=== PATIENT | female | born 1985 | race Caucasian/White ===

== ENCOUNTER 2016-08-28 18:02 | Outpatient (CLI) | payer OTHER ==
[~2016-08-28] VITALS: Ht 160 cm; Wt 80.0 kg
[2016-08-28 18:28] VITALS: BP 107/56
[2016-08-28] MEDS ORDERED: PREN1TAB60 PO (19:58)
== END 2016-08-28 20:25 | disposition home or self-care (01) ==
LOC: LDOP 18:02
PROVIDERS: ATTEND Obstetrics & Gynecology Maternal & Fetal Medicine
DX: O71.89 Other specified obstetric trauma (principal); O26.892 Other specified pregnancy related conditions, second trimester; R10.9 Unspecified abdominal pain; Z3A.00 Weeks of gestation of pregnancy not specified
CPT/HCPCS: 36415; 59025; 76815; 85460; 86850; 86900; 99211; G0463

== ENCOUNTER 2016-12-24 13:05 | Inpatient (IN) | payer OTHER ==
[~2016-12-24] VITALS: Ht 160 cm; Wt 95.0 kg
[~2016-12-24 13:05] MED LIST: PREN1TAB60 PO
[2016-12-26] MEDS ORDERED: OXYTOCIN 30U/ 0.9% NaCL 500ML 500 ML IV ONE (14:55)
[2016-12-26] MEDS ORDERED: PLEASE ENTER HEIGHT AND WEIGHT MC SCH (15:00)
[2016-12-26] MEDS ORDERED: MISOPROSTOL 25 MCG TABLET ONE ×2 (15:39→23:53)
[2016-12-26 15:44] LABS: ANISOCYTOSIS 1+; POLYCHROMASIA 1+
[2016-12-26 15:45] LABS: LARGE PLATELETS 1+
[2016-12-26] MEDS: MISOPROSTOL 25 MCG TABLET VG PRN (16:05)
[2016-12-26] MEDS: LACTATED RINGERS 1,000 ML IV SCH (16:15)
[2016-12-26] MEDS: D5%-LACTATED RINGERS 1,000 ML IV SCH (22:55)
[2016-12-27] MEDS: MISOPROSTOL 25 MCG TABLET VG PRN (00:02)
[2016-12-27] MEDS ORDERED: NEWBORN KIT ONE (00:36)
[2016-12-27] MEDS ORDERED: OXYTOCIN 30U/ 0.9% NaCL 500ML 500 ML ONE (00:36)
[2016-12-27] MEDS ORDERED: MISOPROSTOL 25 MCG TABLET ONE (05:59)
[2016-12-27] MEDS: D5%-LACTATED RINGERS 1,000 ML IV SCH ×3 (06:55→22:55)
[2016-12-27] MEDS: LACTATED RINGERS 1,000 ML IV SCH (22:30)
[2016-12-28] MEDS: FENTANYL PF 100 MCG/2ML IVPush PRN ×3 (05:30→07:50)
[2016-12-28] MEDS ORDERED: FENTANYL PF 100 MCG/2ML ONE ×5 (05:30→17:59)
[2016-12-28] MEDS ORDERED: OXYTOCIN 30U/ 0.9% NaCL 500ML 500 ML IV PRN (05:40)
[2016-12-28] MEDS ORDERED: OXYTOCIN 30U/ 0.9% NaCL 500ML 500 ML IV ONE (05:40)
[2016-12-28] MEDS: LACTATED RINGERS 1,000 ML IV SCH ×16 (05:40→22:55)
[2016-12-28] MEDS: D5%-LACTATED RINGERS 1,000 ML IV SCH ×7 (05:40→22:55)
[2016-12-28] MEDS ORDERED: LIDOCAINE 1%, 20ML ONE (05:49)
[2016-12-28] MEDS ORDERED: MISOPROSTOL 200 MCG TABLET ONE (05:49)
[2016-12-28] MEDS ORDERED: CALCIUM CARBONATE 500 MG TAB.CHEW PO PRN (06:00)
[2016-12-28] MEDS ORDERED: ONDANSETRON 2MG/ML, 2ML IVPush PRN ×2 (06:00→18:00)
[2016-12-28] MEDS ORDERED: SODIUM CITRATE/CITRIC ACID 30 ML UDC PO PRN (06:00)
[2016-12-28] MEDS ORDERED: SODIUM CHLORIDE FLUSH 10ML SYR IVF PRN ×2 (06:00→22:00)
[2016-12-28] MEDS ORDERED: FENTANYL/BUPIV./NS/PF 250 ML EPIDCONT SCH ×2 (08:38→08:41)
[2016-12-28] MEDS ORDERED: FENTANYL/BUPIV./NS/PF 250 ML EPIDCONT ONE (09:00)
[2016-12-28] MEDS ORDERED: LACTATED RINGERS 1,000 ML IVBOLUS PRN (09:00)
[2016-12-28] MEDS ORDERED: EPHEDRINE 50 MG/ML, 1ML IVPush PRN ×2 (09:00→18:00)
[2016-12-28] MEDS ORDERED: NALOXONE 0.4 MG/ML, 1ML IVPush PRN (09:00)
[2016-12-28] MEDS ORDERED: BUPIVACAINE/PF 0.25% ONE (09:00)
[2016-12-28] MEDS: LACTATED RINGERS 1,000 ML IVBOLUS PRN ×2 (10:12→18:09)
[2016-12-28] MEDS ORDERED: ACETAMINOPHEN 325 MG TABLET PO PRN ×4 (14:30→22:00)
[2016-12-28] MEDS ORDERED: ACETAMINOPHEN 325 MG TABLET ONE ×2 (14:33→19:13)
[2016-12-28] MEDS ORDERED: METHYLERGONOVINE 0.2 MG/ML IM ONE (16:36)
[2016-12-28] MEDS ORDERED: SODIUM CITRATE/CITRIC ACID 30 ML UDC ONE (17:48)
[2016-12-28] MEDS ORDERED: METOCLOPRAMIDE 5 MG/ML, 2ML ONE ×2 (17:49→18:20)
[2016-12-28] MEDS ORDERED: ALBUTEROL SULFATE 2.5 MG/3 ML NPPB PRN (18:00)
[2016-12-28] MEDS ORDERED: PROMETHAZINE 25 MG/ML, 1ML IV PRN (18:00)
[2016-12-28] MEDS ORDERED: LABETALOL 5MG/ML, 20ML IV PRN (18:00)
[2016-12-28] MEDS ORDERED: FENTANYL PF 100 MCG/2ML IV PRN (18:00)
[2016-12-28] MEDS ORDERED: OXYcodone 5 MG/5 ML ORAL.SOL UDC PO PRN (18:00)
[2016-12-28] MEDS ORDERED: MIDAZOLAM 1 MG/ML, 2ML IV PRN (18:00)
[2016-12-28] MEDS ORDERED: MEPERIDINE/PF 25MG/0.5ML IVPush PRN (18:00)
[2016-12-28] MEDS ORDERED: ALBUTEROL/IPRATROPIUM 2.5MG/0.5MG, 3 ML NPPB PRN (18:00)
[2016-12-28] MEDS ORDERED: HYDROcodone/APAP 7.5-325MG/15ML UDC PO PRN (18:00)
[2016-12-28] MEDS: OXYTOCIN 30U/ 0.9% NaCL 500ML 500 ML IV SCH ×2 (18:08→18:13)
[2016-12-28] MEDS ORDERED: DEXAMETHASONE 4 MG/ML, 1ML ONE (18:20)
[2016-12-28] MEDS ORDERED: KETOROLAC 30 MG/1 ML ONE (18:20)
[2016-12-28] MEDS ORDERED: PROPOFOL 10 MG/ML, 20ML ONE (18:20)
[2016-12-28] MEDS ORDERED: ONDANSETRON 2MG/ML, 2ML IV PRN ×2 (18:30→22:00)
[2016-12-28] MEDS ORDERED: MISOPROSTOL 200 MCG TABLET PR PRN (18:30)
[2016-12-28] MEDS ORDERED: morphine SULFATE 10 MG/ML, 1ML IVPush PRN (18:30)
[2016-12-28] MEDS ORDERED: SODIUM CITRATE/CITRIC ACID 30 ML UDC PO ONE (18:30)
[2016-12-28] MEDS ORDERED: METOCLOPRAMIDE 5 MG/ML, 2ML IV ONE (18:30)
[2016-12-28] MEDS ORDERED: LACTATED RINGERS 1,000 ML IVBOLUS ONE (18:30)
[2016-12-28] MEDS ORDERED: hydrALAzine 20 MG/ML, 1ML ONE (19:34)
[2016-12-28] MEDS: hydrALAzine 20 MG/ML, 1ML IV PRN ×2 (19:38→21:18)
[2016-12-28] MEDS ORDERED: HYDROmorphone 1 MG/ML, 1ML ONE (20:00)
[2016-12-28] MEDS ORDERED: LABETALOL 100 MG TABLET ONE (20:01)
[2016-12-28] MEDS: LABETALOL 200 MG TABLET PO SCH (20:03)
[2016-12-28] MEDS: HYDROmorphone 1 MG/ML, 1ML IV PRN ×2 (20:08→20:22)
[2016-12-28] MEDS ORDERED: OXYcodone 5 MG/5 ML ORAL.SOL UDC ONE (21:07)
[2016-12-28 21:45] VITALS: BP 135/74
[2016-12-28 23:55] VITALS: BP 118/74
[2016-12-29] MEDS: LACTATED RINGERS 1,000 ML IV SCH ×8 (00:38→05:40)
[2016-12-29] MEDS: KETOROLAC 30 MG/1 ML IV PRN ×3 (01:32→14:13)
[2016-12-29] MEDS: OXYTOCIN 30U/ 0.9% NaCL 500ML 500 ML IV SCH ×2 (04:08→04:13)
[2016-12-29 04:50] VITALS: BP 107/62
[2016-12-29] MEDS: D5%-LACTATED RINGERS 1,000 ML IV SCH (05:40)
[2016-12-29 07:25] VITALS: BP 117/69
[2016-12-29] MEDS ORDERED: PRENATAL VIT/IRON/FA 1 EACH TABLET ONE (07:43)
[2016-12-29] MEDS: DOCUSATE 100 MG CAPSULE PO PRN ×2 (07:48→20:21)
[2016-12-29] MEDS: OXYcodone IR 5MG TABLET PO PRN ×4 (07:48→21:46)
[2016-12-29] MEDS: PRENATAL VIT/IRON/FA 1 EACH TABLET PO SCH (07:48)
[2016-12-29] MEDS: LABETALOL 200 MG TABLET PO SCH ×2 (07:48→17:41)
[2016-12-29 13:18] VITALS: BP 112/72
[2016-12-29 20:00] VITALS: BP 119/71
[2016-12-29] MEDS: IBUPROFEN 600 MG TABLET PO PRN (20:21)
[2016-12-30 02:10] VITALS: BP 107/64
[2016-12-30] MEDS: OXYcodone IR 5MG TABLET PO PRN ×2 (02:10→06:08)
[2016-12-30] MEDS: IBUPROFEN 600 MG TABLET PO PRN ×2 (02:10→08:43)
[2016-12-30 06:00] VITALS: BP 104/59
[2016-12-30 07:08] VITALS: BP 107/68
[2016-12-30] MEDS: PRENATAL VIT/IRON/FA 1 EACH TABLET PO SCH (08:43)
[2016-12-30] MEDS: DOCUSATE 100 MG CAPSULE PO PRN (08:43)
[2016-12-30] MEDS: LABETALOL 200 MG TABLET PO SCH (08:43)
[2016-12-30] MEDS ORDERED: OXYC-302 PO (10:23)
[2016-12-30] MEDS ORDERED: IBUP-1222 PO (10:23)
[2016-12-30] MEDS ORDERED: LABE200T3 PO (10:23)
[2016-12-30] MEDS ORDERED: DOCU-30 PO (10:24)
== END 2016-12-30 10:59 | disposition home or self-care (01) | DRG 766 ==
LOC: LDIP 12-26 14:30 → 2NW 12-28 21:22
PROVIDERS: ADMIT Obstetrics & Gynecology Maternal & Fetal Medicine; ATTEND Obstetrics & Gynecology Maternal & Fetal Medicine
PROC: 10907ZC Drainage of Amniotic Fluid, Therapeutic from Products of Conception, Via Natural or Artificial Opening (ICD-10-PCS; principal; 2016-12-28)
PROC: 10D00Z1 Extraction of Products of Conception, Low, Open Approach (ICD-10-PCS; 2016-12-28)
PROC: 0U7C7ZZ Dilation of Cervix, Via Natural or Artificial Opening (ICD-10-PCS; 2016-12-28)
PROC: 3E033VJ Introduction of Other Hormone into Peripheral Vein, Percutaneous Approach (ICD-10-PCS; 2016-12-28)
PROC: 3E0S3CZ (ICD-10-PCS; 2016-12-28)
PROC: 00HU33Z Insertion of Infusion Device into Spinal Canal, Percutaneous Approach (ICD-10-PCS; 2016-12-28)
DX: O14.04 Mild to moderate pre-eclampsia, complicating childbirth (principal); O62.1 Secondary uterine inertia; O13.4 Gestational [pregnancy-induced] hypertension without significant proteinuria, complicating childbirth; Z3A.39 39 weeks gestation of pregnancy; Z37.0 Single live birth
CPT/HCPCS: 36415; 85025; 86850; 86900; J1100; J1170; J1885; J2704; J3010; J0360; J2210; J2765; J7120; J7121